=== PATIENT | male | born 1995 | race Caucasian/White ===

== ENCOUNTER 2018-06-05 20:24 | Emergency (ER) | payer BC ==
[~2018-06-05] VITALS: Ht 185.4 cm; Wt 81.8 kg
[2018-06-05 20:43] VITALS: BP 142/87; TEMP 97.2
[2018-06-05] MEDS ORDERED: CLEOCIN HC150 MG/CAP PO (21:11)
[2018-06-05] MEDS ORDERED: CLEOCIN HCL300 MG PO (21:14)
[2018-06-05 21:20] VITALS: PULSE 73
== END 2018-06-05 21:24 | disposition home or self-care (01) ==
LOC: COL.ER 20:24
DX: S61.215A Laceration without foreign body of left ring finger without damage to nail, initial encounter (principal); W26.8XXA Contact with other sharp object(s), not elsewhere classified, initial encounter; Y92.009 Unspecified place in unspecified non-institutional (private) residence as the place of occurrence of the external cause